=== PATIENT | male | born 1960 | race Caucasian/White ===

== ENCOUNTER → 2017-05-26 | Day surgery (SDC) | payer OTHER ==
--- NOTE | 2017-05-25 17:13 | Diagnostic Imaging Report ---
PROCEDURE: Frontal and lateral views of the chest. COMPARISON: None. INDICATIONS: PRE-OPERATIVE CHEST X-RAY FOR PROSTATE SURGERY FINDINGS: Lines/tubes: None. Lungs: The lungs are well inflated and clear. There is no evidence of pneumonia or pulmonary edema. Pleura: There is no pleural effusion or pneumothorax. Heart and mediastinum: The heart and the mediastinum are normal. Bones: No acute bony abnormality. IMPRESSION: 1. No acute cardiopulmonary abnormalities Eugene Summers M.D. Dictated by: Eugene Summers M.D. on 05/25/2017 at 17:13 Electronically approved by: Eugene Summers M.D. on 05/25/2017 at 17:13
[~2017-05-26] MED LIST: BELLADONNA/OPIUM 60 MG SUPP PR ONE; BUPIVACAINE 0.5%/EPI 30 ML SDV INJ ONE; CLINDAMYCIN PHOS 900MG/ D5W 50 50 ML IV ONE; DEXAMETHASONE SOD PHOS INJ 4 MG/ML VIAL ONE; FENOFIBRATE145 MG PO; FENTANYL CITRATE/PF 100MCG/2 ML INJ ONE; GENTAMICIN 80MG/NS 100 ML 200 ML IV ONE; IOPAMIDOL 610MG/1ML 300 MG/ML VIAL IV ONE; LIDOCAINE 1% W/EPINEPHRINE 20 ML VIAL ONE; LIDOCAINE HCL 2% LOCAL INJ 5 ML SDV VIAL INJ ONE; LISINOPRIL40 MG PO; METOPROLOL SUCC25 MG PO; MIDAZOLAM HCL 2 MG/2 ML VIAL ONE; ONDANSETRON HCL INJ 2 MG/ML VIAL ONE; PIPER-TAZ 3.375 GM 50 ML ONE; PROPOFOL IV EMULSION 10 MG/ML 20 ML VIAL ONE; SEVOFLURANE INHAL SOLN 250 ML PEN BTL ONE
--- OUTSIDE RECORDS SUMMARY | 2017-05-26 09:09 | XMS REPORT ---
Author Author [facility] Address Unknown Phone Unavailable Care Team Providers Care Blind Eyeletter Name Role Phone LAMONT MEDEIROS Unavailable Unavailable Problems This patient has no known problems. Allergies, Adverse Reactions, Alerts This patient has no known allergies or adverse reactions. Medications This patient has no known medications. Results Test Description Test Time Test Comments Text Results Atomic Results Result Comments CHEST 2 VIEWS [place] [address] Patient Name: SUSAN KNOX MR #: [id number] : 1960 Age/Sex: 56/M Req #: [id number] Adm Physician: Ordered by: LAMONT MEDEIROS MD Report #: [id number] Location: OR Room/Bed: Procedure: [id number] DX/ CHEST 2 VIEWS Exam Date: 05/25/17 Exam Time: 1603 REPORT STATUS: Signed PROCEDURE: Frontal and lateral views of the chest. COMPARISON: None. INDICATIONS: PRE-OPERATIVE CHEST X-RAY FOR PROSTATE SURGERY FINDINGS: Lines/tubes: None. Lungs: The lungs are well inflated and clear. There is no evidence of pneumonia or pulmonary edema. Pleura: There is no pleural effusion or pneumothorax. Heart and mediastinum: The heart and the mediastinum are normal. Bones: No acute bony abnormality. IMPRESSION: 1. No acute cardiopulmonary abnormalities Joan Lucio M.D. Dictated by : Joan Lucio M.D. on 05/25/2017 at 17:13 Electronically approved by: Joan Lucio M.D. on 05/25/2017 at 17:13 Dictated By : JOAN LUCIO MD 12 Transcribed By: ATINA on 05/25/171712 COPY TO: LAMONT MEDEIROS MD
--- NOTE | 2017-07-12 07:23 | Operative Report ---
DATE OF PROCEDURE: May 26, 2017 PREOPERATIVE DIAGNOSES: 1. Severely elevated prostate-specific antigen. 2. Abnormal digital rectal examination. 3. Benign prostatic hypertrophy. 4. Lesion of the right perineum. POSTOPERATIVE DIAGNOSES: 1. Severely elevated prostate-specific antigen. 2. Abnormal digital rectal examination. 3. Benign prostatic hypertrophy. 4. Lesion of the right perineum. OPERATIONS PERFORMED: 1. Transrectal sonography interpretation. 2. Interpretation of ultrasonographic guidance for needle biopsies of the prostate. 3. Transrectal needle biopsies of the prostate (separate procedure performed for the elevated prostate-specific antigen and the abnormal digital rectal examination). 4. Cystourethroscopy with bilateral ureteral catheterization and retrograde ureteropyelography (separate procedure performed for the obstructive benign prostatic hypertrophy). 5. Interpretation of retrograde ureteropyelography. 6. Supervision of fluoroscopy, no radiologist present. 7. Excision of lesion (separate procedure performed for the lesion). ANESTHESIA: General. COMPLICATIONS: None. CLINICAL SUMMARY: Satish Londono is a 56-year-old man who has an elevated PSA and nodular prostate that is also large. He also has a lesion in the right perineum that bothers him and he would like it excised. He is aware of the risks of bleeding, infection, injury to adjacent structures, need for additional procedures, and elected to proceed. OPERATIVE PROCEDURE IN DETAIL: Informed consent was verified. Satish Londono was properly identified, taken to the operating room and placed on the cystoscopy table in supine position. Anesthesia was uneventfully begun. The patient was then carefully and gently repositioned in dorsal lithotomy position with all pressure points well padded. Digital rectal examination was performed, it revealed an enlarged left lobe that was truly huge and it was extremely irregular, hard and firm and highly suspicious. Real-time ultrasonography was then performed transrectally. The left side of the prostate was much larger than the right side of the prostate. It contained rather significant heterogeneity and was highly suspicious. The capsule was distorted and the lesion seemed to be locally invasive. Seminal vesicles were relatively unremarkable. The prostate was estimated at 40 mL in size. guidance, needle biopsies of the prostate were taken, total of 12 biopsies were taken from 6 different areas. These were labeled right versus left and base versus mid versus apex. Following obtaining all these biopsies, the patient's genitalia were prepared and draped in usual sterile fashion. The 22.5-Irish cystoscope sheath with the visual obturator in place was atraumatically inserted in the patient's urethra. It was guided down the unremarkable distal urethra through the normal sphincteric region into the patient's prostate bed, which was significant for very early BPH. Panendoscopy of the urinary bladder revealed single ureteral orifice on the right and 2 ureteral orifices on the left. At least grade 1 trabeculations were noted. A ureteral catheter was utilized to cannulate all 3 ureters and retrograde ureteral pyelograms were performed. Interpretation of retrograde ureteropyelography: Contrast was instilled in retrograde fashion bilaterally. There were no tumors, no stones, and no diverticula. There was complete ureteral duplication on left hand side. Unobstructed drainage was observed bilaterally fluoroscopically. There was no evidence of any neoplastic process involving blockage of the upper tracts. The patient's bladder was then drained. The cystoscope was withdrawn. We then turned attention to the lesion in the right perineum. The lesion was circumscribed and excised. We mobilized the skin around it. We verified perfect hemostasis. We infiltrated with Marcaine with epinephrine for postoperative pain control. The incision was then approximated with 2-0 Vicryl suture in interrupted fashion for the subcutaneous tissues and the skin was approximated with 3-0 sutures in subcuticular fashion. Sterile dressing was applied, and the patient was uneventfully reversed from anesthesia and taken to recovery room in stable condition. There were no complications to the procedure. Patient tolerated the procedure well. Sponge, needle, and instrument counts were quoted as correct x2 at the end of the case. Estimated blood loss was minimal. Explicit postoperative instructions were given, and will eagerly await the final histopathology for further management. Job#: [id number] cc:MELVIN OCHOA DO
== END | disposition home or self-care (01) ==
LOC: OR 09:07
PROVIDERS: ATTEND Urology
DX: C61 Malignant neoplasm of prostate (principal); D17.39 Benign lipomatous neoplasm of skin and subcutaneous tissue of other sites; N40.1 Benign prostatic hyperplasia with lower urinary tract symptoms; N13.8 Other obstructive and reflux uropathy; N32.89 Other specified disorders of bladder; R35.1 Nocturia; Q62.5 Duplication of ureter; Z01.810 Encounter for preprocedural cardiovascular examination; Z01.818 Encounter for other preprocedural examination; H91.90 Unspecified hearing loss, unspecified ear; I10 Essential (primary) hypertension; E78.5 Hyperlipidemia, unspecified; T78.40XA Allergy, unspecified, initial encounter; X58.XXXA Exposure to other specified factors, initial encounter; F17.210 Nicotine dependence, cigarettes, uncomplicated; Z86.19 Personal history of other infectious and parasitic diseases; Z80.42 Family history of malignant neoplasm of prostate; Z80.51 Family history of malignant neoplasm of kidney
CPT/HCPCS: 11420; 12041; 52005; 55700; 71046; 74420; 76872; 76942; 88305; 93005; C1758; J1100; J1580; J2001; J2250; J2405; J2543; Q9967

== ENCOUNTER → 2017-06-25 | Outpatient (CLI) | payer OTHER ==
[~2017-06-25] MED LIST changes: -BELLADONNA/OPIUM 60 MG SUPP PR ONE; -BUPIVACAINE 0.5%/EPI 30 ML SDV INJ ONE; -CLINDAMYCIN PHOS 900MG/ D5W 50 50 ML IV ONE; -DEXAMETHASONE SOD PHOS INJ 4 MG/ML VIAL ONE; -FENTANYL CITRATE/PF 100MCG/2 ML INJ ONE; -GENTAMICIN 80MG/NS 100 ML 200 ML IV ONE; +IOPAMIDOL 370 MG/ML 200 ML INFUS..BTL INJ ONE; -IOPAMIDOL 610MG/1ML 300 MG/ML VIAL IV ONE; -LIDOCAINE 1% W/EPINEPHRINE 20 ML VIAL ONE; -LIDOCAINE HCL 2% LOCAL INJ 5 ML SDV VIAL INJ ONE; -MIDAZOLAM HCL 2 MG/2 ML VIAL ONE; -ONDANSETRON HCL INJ 2 MG/ML VIAL ONE; -PIPER-TAZ 3.375 GM 50 ML ONE; -PROPOFOL IV EMULSION 10 MG/ML 20 ML VIAL ONE; -SEVOFLURANE INHAL SOLN 250 ML PEN BTL ONE; +SODIUM CHLORIDE 0.9% 50ML 50 ML ONE
[2017-06-25 15:22] LABS: BLOOD UREA NITROGEN 14 mg/dL (7-26); BUN/CREATININE RATIO 12 (6-25); CREATININE, SERUM 1.21 mg/dL (0.72-1.25); EST GLOMERULAR FILTRATION RATE > 60 ML/MIN (60-)
--- NOTE | 2017-06-25 17:10 | Diagnostic Imaging Report ---
PROCEDURE: CT ABDOMEN AND PELVIS WITH CONTRAST TECHNIQUE: The abdomen and pelvis were scanned utilizing a multidetector helical scanner from the diaphragm to the lesser trochanter after the IV administration of 100 cc of Isovue 370 and the oral administration of water. Coronal and sagittal multiplanar reformations were obtained. COMPARISON: None. INDICATIONS: MALIGNANT NEOPLASM OF PROSTATE FINDINGS: LOWER THORAX: Minimal bilateral lower lobe dependent atelectasis. No pulmonary nodules or masses in the lung bases. HEPATOBILIARY: No focal hepatic lesions. No biliary ductal dilatation. Gallbladder is decompressed, but grossly unremarkable. SPLEEN: No splenomegaly. PANCREAS: No focal masses or ductal dilatation. Normal appearing pancreatic head, neck, and proximal body. The pancreatic tail is absent. ADRENALS: No adrenal nodules. KIDNEYS/URETERS: No hydronephrosis, stones, or solid mass lesions. PELVIC ORGANS/BLADDER: Bladder is unremarkable. No focal lesion or wall thickening. The prostate measures approximately 4.6 x 4.5 x 5.0 cm (estimated volume of 54 cc). There is asymmetry of the seminal vesicles, with the left seminal vesicle twice as large as the right (for example series 2, image 81) and with a denser appearance. PERITONEUM / RETROPERITONEUM: No free air or fluid. LYMPH NODES: No intra-abdominal, pelvic, or inguinal adenopathy. Slightly prominent left common iliac lymph node (series 2, image 48), which measures approximately 9-10 mm short axis. VESSELS: Atherosclerotic calcification of the infrarenal abdominal aorta and proximal iliac vessels. GI TRACT: No bowel dilation or evidence of obstruction. No pericolonic inflammatory changes. Appendix is well identified and normal in caliber. BONES AND SOFT TISSUES: No aggressive lytic lesion. 0.9 cm focal sclerotic lesion in the left sacrum (series 2, image 62 and coronal image 67). 2 mm focal sclerotic lesion in the L5 vertebral body (series 2, image 56 and sagittal image 67). Punctate focal sclerotic lesion in the right acetabulum (series 2 image 75). 3-4 mm focal sclerotic lesion in the left iliac bone (series 2, image 68). Ill-defined 4 mm and 9 mm focal sclerotic lesions in the right inferior pubic ramus (series 2 image 95). Soft tissues are grossly unremarkable. IMPRESSION: 1. Enlarged prostate likely due to known prostatic neoplasm. There is asymmetry of the seminal vesicles, with enlargement of the left one, which may represent invasion and/or obstruction. This may be further assessed with prostate MRI. 2. 9 mm left sacral, 2 mm, L5 vertebral body and for a 9 mm right inferior pubic ramus sclerotic lesions are suspicious for sclerotic metastases. Focal sclerotic lesions in the right acetabulum and left iliac bone probably represents bone islands, however, other metastases are also considered. 3. Slightly prominent left common iliac lymph node, which could be metastatic. No other adenopathy is identified. No solid organ metastatic disease. Eugene Summers M.D. Dictated by: Eugene Summers M.D. on 06/25/2017 at 17:10 Electronically approved by: Eugene Summers M.D. on 06/25/2017 at 17:10
== END ==
LOC: CT 14:41
PROVIDERS: ATTEND Urology
DX: C61 Malignant neoplasm of prostate (principal)
CPT/HCPCS: 36415; 74177; 82565; 84520; Q9967

== ENCOUNTER → 2017-07-12 | Outpatient (CLI) | payer OTHER ==
[~2017-07-12] MED LIST changes: -IOPAMIDOL 370 MG/ML 200 ML INFUS..BTL INJ ONE; -SODIUM CHLORIDE 0.9% 50ML 50 ML ONE
--- NOTE | 2017-07-12 19:30 | Diagnostic Imaging Report ---
Bone Scan, delayed phase INDICATION: 56 M with recently diagnosed prostate cancer; elevated PSA. COMPARISON: CT abdo/pelvis 06/25/2017 REPORT: Approximately 3 hours following intravenous administration of 27 mCi of Tc-99m MDP, delayed total body images in the anterior and posterior projections and selected spot images were obtained. Foci of markedly increased tracer are seen in the mid cervical spine; T4; T8; left clavicle at the sternoclavicular junction; manubrium; distal sternal body; left 6th, 8th and 10th ribs posteriorly; right 5th and 8th-11th ribs posteriorly; sacrum and right iliac wing. Additional small foci of mildly increased tracer are seen in the upper thoracic spine, L4/L5 on the right and at the lesser trochanter of the left femur. Otherwise, distribution of tracer activity is unremarkable throughout the skeletal system. No abnormal accumulation of tracer is seen in the soft tissues or urinary tract. IMPRESSION: 1. Scan evidence of metastatic bone disease in the cervical and thoracic spine, left clavicle, manubrium, sternum, multiple ribs posteriorly, sacrum, right ilium and likely lesser trochanter of the left femur. 2. Osteoblastic lesions in the right 8th-11th ribs posteriorly are in an adjacent pattern and may represent healing rib fractures. Can be followed on future imaging. 3. Osteoblastic process in L4/L5 on the right is likely due to degenerative change. Signed by: Dr. Carlota Melo M.D. on 07/12/2017 7:26 PM
== END ==
LOC: NM 12:43
PROVIDERS: ATTEND Urology
DX: C61 Malignant neoplasm of prostate (principal)
CPT/HCPCS: 78306; A9503

== ENCOUNTER 2017-10-08 16:10 | Inpatient (IN) | payer OTHER ==
[~2017-10-08] VITALS: Ht 190.5 cm; Wt 99.8 kg
[2017-10-08] MEDS ORDERED: VANCOMYCIN HCL 1 GM VIAL IV ONE (16:30)
[2017-10-08] MEDS ORDERED: MORPHINE SULFATE INJ 4 MG/ML INJ IV ONE (16:30)
[2017-10-08] MEDS ORDERED: SODIUM CHLORIDE 0.9% 1000ML 1,000 ML ONE (16:30)
[2017-10-08] MEDS ORDERED: ONDANSETRON HCL INJ 2 MG/ML VIAL IV ONE (16:30)
[2017-10-08] MEDS ORDERED: CEFTRIAXONE SOD 1 GM VIAL IV ONE (16:30)
[2017-10-08] MEDS ORDERED: ACETAMINOPHEN 325 MG TAB PO ONE (17:00)
[2017-10-08] MEDS ORDERED: PROMETHAZINE 12.5MG/ NACL 0.9% 12.5 MG/50 ML BAG IV PRN (18:30)
[2017-10-08] MEDS ORDERED: HYDROMORPHONE 1MG/1ML INJ IV PRN (18:30)
[2017-10-08] MEDS ORDERED: DIPHENHYDRAMINE HCL 25 MG CAP PO PRN (18:30)
[2017-10-08] MEDS ORDERED: SODIUM CHLORIDE 0.9% 1000ML 1,000 ML IV ONE (18:30)
[2017-10-08] MEDS ORDERED: CLONIDINE HCL 0.1 MG TAB PO PRN (18:30)
[2017-10-08] MEDS ORDERED: ONDANSETRON HCL INJ 2 MG/ML VIAL IV PRN (18:30)
[2017-10-08] MEDS ORDERED: HYDROCODONE/APAP 7.5MG-325MG 1 EA TAB PO PRN (18:30)
[2017-10-08] MEDS ORDERED: DIPHENHYDRAMINE HCL INJ 50 MG/ML VIAL IV PRN (18:30)
[2017-10-08] MEDS ORDERED: LACTULOSE SYRUP 20 GM/30 ML UDC PO PRN (18:30)
[2017-10-08] MEDS: VANCOMYCIN 1GM/NS 250 ML 250 ML IV SCH (19:36)
[2017-10-08] MEDS ORDERED: ONDANSETRON HCL4 MG (20:07)
[2017-10-08] MEDS ORDERED: CHANTIX1 MG (20:07)
[2017-10-08 20:28] VITALS: BP 149/70
[2017-10-08] MEDS ORDERED: ZOLPIDEM TARTRATE 10 MG TAB PO PRN (21:00)
[2017-10-08] MEDS: CLINDAMYCIN PHOS 900MG/ D5W 50 50 ML IV SCH (23:15)
[2017-10-09] VITALS (9 sets, daily range): BP systolic 126–168; BP diastolic 58–79
[2017-10-09 05:47] LABS: BASOPHILS # (AUTO) 0.1 (0.0-0.1); BASOPHILS % 1.6 % (0.0-1.0); EOSINOPHILS % 0.4 % (0.0-6.0); HEMATOCRIT 28.4 % (38.2-49.6); LYMPHOCYTES % 26.1 % (18.0-39.1); MEAN CORPUSCULAR HEMOGLOBIN 30.5 pg (28-32); MEAN CORPUSCULAR HGB CONC 35.2 g/dL (31-35); MEAN CORPUSCULAR VOLUME 86.6 fL (81-99); MONOCYTES # (AUTO) 2.2 (0.2-0.8); MONOCYTES % 28.1 % (4.4-11.3); NEUTROPHILS % 38.3 % (38.7-80.0); PLATELET COUNT 216 x10e3/uL (140-360); RED BLOOD COUNT 3.28 x10e6/uL (4.3-5.7); RED CELL DISTRIBUTION WIDTH 12.7 % (11.7-14.4)
[2017-10-09] MEDS: VANCOMYCIN 1GM/NS 250 ML 250 ML IV SCH ×2 (05:55→18:45)
[2017-10-09 06:03] LABS: ANION GAP 12.5 mmol/L (8-16); BLOOD UREA NITROGEN 16 mg/dL (7-26); BUN/CREATININE RATIO 13 (6-25); CALCIUM 8.7 mg/dL (8.4-10.2); CARBON DIOXIDE 24 mmol/L (22-29); CHLORIDE 105 mmol/L (98-107); CREATININE, SERUM 1.19 mg/dL (0.72-1.25); EST GLOMERULAR FILTRATION RATE > 60 ML/MIN (60-); GLUCOSE 117 mg/dL (74-118); POTASSIUM 3.5 mmol/L (3.5-5.1); SODIUM 138 mmol/L (136-145)
[2017-10-09 06:28] LABS: BAND NEUTROPHILS % (MANUAL) 4 %; LYMPHOCYTES % (MANUAL) 22 % (19-48); METAMYELOCYTES % (MANUAL) 1 % (0-0); MONOCYTES % (MANUAL) 20 % (3.4-9.0); MYELOCYTES % (MANUAL) 1 % (0-0); NEUTROPHILS % (MANUAL) 50 % (40-74); PLATELET ESTIMATE ADEQUATE; PLATELET MORPHOLOGY COMMENT NORMAL; RBC MORPHOLOGY COMMENT NORMAL
[2017-10-09] MEDS: CLINDAMYCIN PHOS 900MG/ D5W 50 50 ML IV SCH ×3 (07:20→22:01)
[2017-10-09] MEDS: FAMOTIDINE 20 MG TAB PO SCH ×2 (07:30→16:30)
[2017-10-09] MEDS ORDERED: CEFEPIME 1GM/NS 0.9% 50 ML 50 ML IV SCH (12:00)
[2017-10-09] MEDS: METOPROLOL SUCCINATE 25 MG TAB XL PO SCH (12:00)
[2017-10-09] MEDS: FENOFIBRATE 145 MG TAB PO SCH (12:00)
[2017-10-09] MEDS: LISINOPRIL 20 MG TAB PO SCH (12:00)
[2017-10-09] MEDS: CEFEPIME HCL 1 GM VIAL IV SCH ×2 (13:00→20:30)
[2017-10-09] MEDS ORDERED: POTASSIUM CHLORIDE 20 MEQ TAB CR PO ONE (16:00)
--- NOTE | 2017-10-09 16:53 | Diagnostic Imaging Report ---
Exam: Soft tissue neck CT with IV contrast History: Facial cellulitis Comparison studies: Outside maxillofacial CT 10/08 Technique: Axial, coronal and sagittal images from the skull base to the thoracic inlet. Coronal and sagittal images reconstructed from the axial data. Intravenous contrast: 100 cc of Isovue-370 Findings: Soft tissues: Right premandibular swelling with overlying skin thickening and stranding in the subcutaneous fat compatible with cellulitis. There is reactive thickening of the right platysmas muscle. No rim-enhancing fluid collection to indicate abscess. Upper aerodigestive tract: No mass or enhancing abnormalities. Mildly prominent lingual lymphoid tissue extends into the vallecula. Lymph nodes: Small nonnecrotic reactive right suprahyoid jugulodigastric lymph nodes. Vessels: Patent carotid and vertebral arteries. Calcified atherosclerosis at the cervical carotid bulbs and carotid bifurcations with mild stenosis on the right. No hemodynamically significant stenosis on the left. Glands (thyroid, parotid and submandibular): Normal in size and symmetric. No masses. Orbits: No abnormalities. The paranasal sinuses: Mild mucosal thickening along the left maxillary sinus alveolar recess. Temporal bones: Chronic inflammatory changes in the mastoids bilaterally. Included skull base and facial bones: Intact. Dentition: edentulous. Cervical spine: Minimal anterolisthesis of C4 on C5 and retrolisthesis of C5 on C6. Mildly degenerated disks with disc osteophyte complexes at C4-C5 which result in mild canal stenosis. Moderate moderate right greater than left foraminal stenosis at C4-C5 due to uncovertebral arthrosis and severe right facet arthrosis. Moderate left and mild/moderate right foraminal stenosis at C5-C6 due to uncovertebral arthrosis. IMPRESSION: 1. Right perimandibular facial cellulitis with reactive regional lymph nodes. No abscess. 2. No other acute abnormalities or changes from the previous head CT of 10/08/2017. Signed by: Dr. Santos Bravo M.D. on 10/09/2017 4:49 PM
[2017-10-09] MEDS ORDERED: SODIUM CHLORIDE 0.9% 50ML 50 ML ONE (18:32)
[2017-10-09] MEDS ORDERED: IOPAMIDOL 370 MG/ML 200 ML INFUS..BTL INJ ONE (18:33)
[2017-10-09] MEDS ORDERED: DIPHENHYDRAMINE HCL 30 GM TUBE TOP PRN (20:15)
[2017-10-09] MEDS: ACETAMINOPHEN 325 MG TAB PO PRN (20:30)
[2017-10-10 04:00] VITALS: BP 157/72
[2017-10-10] MEDS: CEFEPIME HCL 1 GM VIAL IV SCH ×3 (05:08→21:24)
[2017-10-10] MEDS: CLINDAMYCIN PHOS 900MG/ D5W 50 50 ML IV SCH ×3 (05:08→21:37)
[2017-10-10 05:58] LABS: BASOPHILS # (AUTO) 0.2 (0.0-0.1); BASOPHILS % 1.7 % (0.0-1.0); EOSINOPHILS # (AUTO) 0.1 (0.0-0.4); EOSINOPHILS % 0.6 % (0.0-6.0); HEMOGLOBIN 9.9 g/dL (14.0-18.0); LYMPHOCYTES # (AUTO) 2.6 (1.0-3.2); LYMPHOCYTES % 24.8 % (18.0-39.1); MEAN CORPUSCULAR HEMOGLOBIN 30.6 pg (28-32); MEAN CORPUSCULAR HGB CONC 35.4 g/dL (31-35); MEAN CORPUSCULAR VOLUME 86.4 fL (81-99); MONOCYTES # (AUTO) 1.7 (0.2-0.8); MONOCYTES % 16.6 % (4.4-11.3); NEUTROPHILS # (AUTO) 4.4 (2.1-6.9); PLATELET COUNT 220 x10e3/uL (140-360); RED BLOOD COUNT 3.24 x10e6/uL (4.3-5.7); RED CELL DISTRIBUTION WIDTH 12.8 % (11.7-14.4)
[2017-10-10] MEDS: VANCOMYCIN 1GM/NS 250 ML 250 ML IV SCH ×2 (06:05→17:26)
[2017-10-10 06:26] LABS: ANION GAP 10.4 mmol/L (8-16); BLOOD UREA NITROGEN 12 mg/dL (7-26); BUN/CREATININE RATIO 10 (6-25); CALCIUM 8.9 mg/dL (8.4-10.2); CARBON DIOXIDE 25 mmol/L (22-29); CHLORIDE 107 mmol/L (98-107); CREATININE, SERUM 1.15 mg/dL (0.72-1.25); EST GLOMERULAR FILTRATION RATE > 60 ML/MIN (60-); GLUCOSE 107 mg/dL (74-118); POTASSIUM 4.4 mmol/L (3.5-5.1); SODIUM 138 mmol/L (136-145)
[2017-10-10 06:51] LABS: THYROID STIMULATING HORMONE 4.075 uIU/mL (0.350-4.940)
[2017-10-10] MEDS: FAMOTIDINE 20 MG TAB PO SCH ×2 (07:30→17:26)
[2017-10-10 08:12] VITALS: BP 162/80
[2017-10-10] MEDS: FENOFIBRATE 145 MG TAB PO SCH (09:00)
[2017-10-10] MEDS: AMLODIPINE BESYLATE 10 MG TAB PO SCH (09:00)
[2017-10-10] MEDS: LISINOPRIL 20 MG TAB PO SCH (09:00)
[2017-10-10] MEDS: METOPROLOL SUCCINATE 25 MG TAB XL PO SCH (09:00)
[2017-10-10 09:34] LABS: BAND NEUTROPHILS % (MANUAL) 15 %; LYMPHOCYTES % (MANUAL) 22 % (19-48); METAMYELOCYTES % (MANUAL) 1 % (0-0); MONOCYTES % (MANUAL) 21 % (3.4-9.0); NEUTROPHILS % (MANUAL) 39 % (40-74)
[2017-10-10 09:35] LABS: PLATELET ESTIMATE ADEQUATE; PLATELET MORPHOLOGY COMMENT NORMAL; RBC MORPHOLOGY COMMENT NORMAL
--- NOTE | 2017-10-10 10:10 | History and Physical ---
PRIMARY CARE PROVIDER: Dr. Yomi Mcclellan CHIEF COMPLAINT: Cellulitis, right face. HISTORY OF PRESENT ILLNESS: Mr. Londono is a 57-year-old gentleman who presents with erythema and swelling of the right face extending from the maxillary ridge down into the jaw area. This has been going on for about 2 to 3 days. REVIEW OF SYSTEMS: He has had some subjective fever and chills. He denies weight loss. He denies chest pain or palpitations. He denies shortness breath, wheezing or cough. He denies abdominal pain, nausea, vomiting or melena. He denies dysuria or flank pain. He denies rash or pruritus except for the cellulitis of the right face. He denies joint pain or swelling. He denies bleeding or bruising. He denies headache, vertigo or loss of consciousness. He denies depression, agitation, homicidal or suicidal ideation. PAST MEDICAL HISTORY: Significant for longstanding hypertension for which he takes metoprolol 25 mg daily XL and lisinopril 40 mg daily. He also takes fenofibrate 145 for hyperlipidemia. The patient also has stage-IV prostate cancer that was diagnosed earlier this year. His PSA at that time was over 200. He was started on chemo by MD William. His last chemo was September 21. His last PSA was 0, seems to be responding to chemo. His next treatment is October 14. Hopefully, he will be home by then. SURGICAL HISTORY: He denies any significant surgical history. ALLERGIES: HE HAS NO KNOWN DRUG ALLERGIES. HABITS: He is a nonsmoker. FAMILY HISTORY: Remarkable for hypertension. SOCIAL HISTORY: The patient is . Occitan is his primary language. He does not smoke, drink or use illegal drugs. He is generally independently functioning. PHYSICAL EXAMINATION PSYCHIATRIC: He is alert and oriented times 3 with normal mood and affect. CONSTITUTIONAL: He has a normal body habitus. He is in no acute distress. VITAL SIGNS: Blood pressure 168/74. Pulse 67 and regular. Respiratory rate 19. O2 sat 100% on room air. Temperature 96.8. HEENT: Head is atraumatic. He has marked erythema in the lower right cheek and chin area with marked induration, approximately 3 to 4 cm in diameter of induration underneath the chin on the right side. His oropharynx is clear. NECK: Supple with no mass or thyromegaly. LYMPHATIC SYSTEM: He has no palpable cervical, axillary or inguinal adenopathy. CARDIOVASCULAR: His heart has a regular rate and rhythm without murmur or extra heart sound. He has no carotid bruit. There is no peripheral edema. He has palpable dorsal pedal pulses. RESPIRATORY: Lungs are clear to auscultation and percussion with normal respiratory effort. GASTROINTESTINAL: Abdomen is soft without organomegaly, masses or tenderness. He has normal bowel sounds present. CUTANEOUS: His skin is warm and dry to touch. He has erythema, induration and swelling of the right face. Otherwise, he has no rash or skin breakdown. MUSCULOSKELETAL: Joints are in normal alignment without erythema or swelling. He has no calf tenderness. NEUROLOGIC: Exam is nonfocal with intact cranial nerves and no motor or sensory deficits. DIAGNOSTIC STUDIES: CBC shows a white count of 7.69 with a normal differential. Hemoglobin 10.0, hematocrit 28.4, platelet count 214,000. His neutrophil count is 38.3, which is slightly depressed, lymphocytes 22, monocytes 20, could be the result of recovering bone marrow due to the chemo he had 2 weeks ago. His chemistry shows normal electrolytes. CO2 is 24. Creatinine 1.19 and BUN 16. Glucose 117. IMPRESSION AND PLAN 1. Cellulitis/abscess, right face and chin. The patient has been started on IV vancomycin and cefepime. There is a CT scan of the maxillofacial area which is pending. ENT has been consulted for evaluation as well. 2. Hypertension. Appears fairly well controlled at home. Will continue his home medications of metoprolol and lisinopril. 3. Hypokalemia. Potassium 3.5. Will replete with p.o. potassium. 4. Normocytic anemia, most likely due to the recent chemotherapy. Will observe H and H, recheck labs in the morning. 5. For prophylaxis, the patient will be on SCDs for DVT prophylaxis and Pepcid for GI prophylaxis. 6. As far as his prostate cancer goes, will be monitoring that for now. The patient is not due for more chemotherapy until 10/14/2017. Stage IV prostate cancer, which is current, present on admission. Job#: [id number]
[2017-10-10 13:25] VITALS: BP 148/80
[2017-10-10 16:41] VITALS: BP 145/85
[2017-10-10 20:15] VITALS: BP 153/82
[2017-10-10 21:00] VITALS: BP 153/82
[2017-10-11] VITALS (9 sets, daily range): BP systolic 129–152; BP diastolic 61–78
[2017-10-11 03:11] LABS: BASOPHILS # (AUTO) 0.2 (0.0-0.1); BASOPHILS % 1.9 % (0.0-1.0); EOSINOPHILS # (AUTO) 3.9 (0.0-0.4); EOSINOPHILS % 32.5 % (0.0-6.0); HEMATOCRIT 30.3 % (38.2-49.6); HEMOGLOBIN 10.8 g/dL (14.0-18.0); LYMPHOCYTES # (AUTO) 2.6 (1.0-3.2); LYMPHOCYTES % 21.4 % (18.0-39.1); MEAN CORPUSCULAR HEMOGLOBIN 30.2 pg (28-32); MEAN CORPUSCULAR HGB CONC 35.6 g/dL (31-35); MEAN CORPUSCULAR VOLUME 84.6 fL (81-99); MONOCYTES # (AUTO) 1.4 (0.2-0.8); MONOCYTES % 11.5 % (4.4-11.3); NEUTROPHILS # (AUTO) 1.2 (2.1-6.9); NEUTROPHILS % 10.3 % (38.7-80.0); PLATELET COUNT 276 x10e3/uL (140-360); RED BLOOD COUNT 3.58 x10e6/uL (4.3-5.7); RED CELL DISTRIBUTION WIDTH 12.9 % (11.7-14.4)
[2017-10-11 03:32] LABS: % IRON SATURATION 38 % (15-50); BLOOD UREA NITROGEN 10 mg/dL (7-26); BUN/CREATININE RATIO 9 (6-25); CALCIUM 9.4 mg/dL (8.4-10.2); CARBON DIOXIDE 25 mmol/L (22-29); CREATININE, SERUM 1.17 mg/dL (0.72-1.25); EST GLOMERULAR FILTRATION RATE > 60 ML/MIN (60-); GLUCOSE 101 mg/dL (74-118); IRON 98 ug/dL (65-175); TOTAL IRON BINDING CAPACITY 260 ug/dL (261-478); TRANSFERRIN 186 mg/dL (174-364)
[2017-10-11 03:43] LABS: ANION GAP 13.1 mmol/L (8-16); CHLORIDE 104 mmol/L (98-107); MAGNESIUM 2.3 MG/DL (1.3-2.1); POTASSIUM 4.1 mmol/L (3.5-5.1); SODIUM 138 mmol/L (136-145)
[2017-10-11 03:54] LABS: FERRITIN 701.38 ng/mL (21.81-274.66)
[2017-10-11 04:04] LABS: FOLATE 10.6 ng/mL (7.0-15.4)
[2017-10-11] MEDS: CEFEPIME HCL 1 GM VIAL IV SCH ×3 (05:14→20:52)
[2017-10-11] MEDS: CLINDAMYCIN PHOS 900MG/ D5W 50 50 ML IV SCH ×3 (05:29→21:59)
[2017-10-11] MEDS: VANCOMYCIN 1GM/NS 250 ML 250 ML IV SCH ×2 (06:17→18:43)
--- NOTE | 2017-10-11 08:31 | Consultation ---
DATE OF CONSULTATION: October 11, 2017 HOSPITAL CONSULTATION HISTORY OF PRESENT ILLNESS: I was kindly asked to see this pleasant 57-year-old man for evaluation of facial cellulitis. The patient reports that approximately 2 days prior to his admission he had a "pimple" on his right lower chin, which he picked. The following morning he woke and had a painful red, swollen area in the previous region of the pimple. It continued to progress and had swelling of the entire right face and into his neck. Since admission, the patient reports the swelling has reduced significantly and the pain has also reduced significantly. His history of present illness is pertinent for stage IV prostate cancer, on chemotherapy. Admission laboratory evaluation is pertinent for normal white count on examination. There is a 3 cm x 4 cm area of firmness overlying the right mandible with extension into the submandibular region. There is no fluctuance on palpation. The distribution is more consistent with skin lesion than suppurative adenitis. Intraoral examination shows there is no teeth and no oral cavity source of the infection is identified. ASSESSMENT: Facial cellulitis without abscess of skin origin. PLAN: Continuation of current therapy with consideration of incision and drainage based on clinical course. Job#: [id number] RAMIN
[2017-10-11] MEDS: LISINOPRIL 20 MG TAB PO SCH (08:33)
[2017-10-11] MEDS: FENOFIBRATE 145 MG TAB PO SCH (08:33)
[2017-10-11] MEDS: METOPROLOL SUCCINATE 25 MG TAB XL PO SCH (08:33)
[2017-10-11] MEDS: FAMOTIDINE 20 MG TAB PO SCH ×2 (08:33→17:00)
[2017-10-11] MEDS: AMLODIPINE BESYLATE 10 MG TAB PO SCH (08:33)
[2017-10-12] VITALS (8 sets, daily range): BP systolic 121–147; BP diastolic 59–77
[2017-10-12 04:03] LABS: BASOPHILS # (AUTO) 0.3 (0.0-0.1); EOSINOPHILS # (AUTO) 0.2 (0.0-0.4); EOSINOPHILS % 1.3 % (0.0-6.0); HEMATOCRIT 29.7 % (38.2-49.6); HEMOGLOBIN 10.4 g/dL (14.0-18.0); LYMPHOCYTES # (AUTO) 2.5 (1.0-3.2); LYMPHOCYTES % 17.4 % (18.0-39.1); MEAN CORPUSCULAR HEMOGLOBIN 30.1 pg (28-32); MEAN CORPUSCULAR VOLUME 85.8 fL (81-99); MONOCYTES # (AUTO) 1.4 (0.2-0.8); MONOCYTES % 9.5 % (4.4-11.3); NEUTROPHILS # (AUTO) 7.8 (2.1-6.9); NEUTROPHILS % 53.4 % (38.7-80.0); PLATELET COUNT 288 x10e3/uL (140-360); RED BLOOD COUNT 3.46 x10e6/uL (4.3-5.7)
[2017-10-12 04:34] LABS: ANION GAP 14.2 mmol/L (8-16); CALCIUM 9.7 mg/dL (8.4-10.2); CREATININE, SERUM 1.46 mg/dL (0.72-1.25); POTASSIUM 4.2 mmol/L (3.5-5.1)
[2017-10-12] MEDS: CEFEPIME HCL 1 GM VIAL IV SCH ×3 (05:25→21:35)
[2017-10-12] MEDS: CLINDAMYCIN PHOS 900MG/ D5W 50 50 ML IV SCH (05:49)
[2017-10-12] MEDS: VANCOMYCIN 1GM/NS 250 ML 250 ML IV SCH ×2 (06:45→18:35)
[2017-10-12 06:59] LABS: BAND NEUTROPHILS % (MANUAL) 14 %; EOSINOPHILS % (MANUAL) 1 % (0-7); LYMPHOCYTES % (MANUAL) 20 % (19-48); MONOCYTES % (MANUAL) 10 % (3.4-9.0); MYELOCYTES % (MANUAL) 3 % (0-0); NEUTROPHILS % (MANUAL) 50 % (40-74)
[2017-10-12 07:00] LABS: ANISOCYTOSIS SLIGHT; HYPOCHROMASIA SLIGHT; PLATELET ESTIMATE ADEQUATE; PLATELET MORPHOLOGY COMMENT NORMAL; RBC MORPHOLOGY COMMENT NORMAL
[2017-10-12 07:01] LABS: POIKILOCYTOSIS SLIGHT; SMUDGE CELLS FEW
[2017-10-12] MEDS ORDERED: DEXTROSE 5%/0.45% SOD CHL 1,000 ML IV ONE (08:45)
[2017-10-12] MEDS: FAMOTIDINE 20 MG TAB PO SCH ×2 (08:50→17:30)
[2017-10-12] MEDS: AMLODIPINE BESYLATE 10 MG TAB PO SCH (08:50)
[2017-10-12] MEDS: LISINOPRIL 20 MG TAB PO SCH (08:50)
[2017-10-12] MEDS: METOPROLOL SUCCINATE 25 MG TAB XL PO SCH (08:50)
[2017-10-12] MEDS: FENOFIBRATE 145 MG TAB PO SCH (08:50)
[2017-10-12] MEDS: ACYCLOVIR 200 MG/5 ML SUSP GT SCH ×2 (14:00→22:37)
[2017-10-13 03:15] LABS: BASOPHILS # (AUTO) 0.2 (0.0-0.1); BASOPHILS % 1.3 % (0.0-1.0); EOSINOPHILS # (AUTO) 0.4 (0.0-0.4); EOSINOPHILS % 2.5 % (0.0-6.0); HEMATOCRIT 28.4 % (38.2-49.6); HEMOGLOBIN 10.1 g/dL (14.0-18.0); LYMPHOCYTES # (AUTO) 2.6 (1.0-3.2); LYMPHOCYTES % 18.4 % (18.0-39.1); MEAN CORPUSCULAR HEMOGLOBIN 30.5 pg (28-32); MEAN CORPUSCULAR HGB CONC 35.6 g/dL (31-35); MEAN CORPUSCULAR VOLUME 85.8 fL (81-99); MONOCYTES # (AUTO) 1.2 (0.2-0.8); MONOCYTES % 8.5 % (4.4-11.3); NEUTROPHILS % 55.7 % (38.7-80.0); PLATELET COUNT 271 x10e3/uL (140-360); RED BLOOD COUNT 3.31 x10e6/uL (4.3-5.7)
[2017-10-13 03:26] LABS: CALCIUM 9.5 mg/dL (8.4-10.2); CREATININE, SERUM 1.28 mg/dL (0.72-1.25); MAGNESIUM 1.9 MG/DL (1.3-2.1)
[2017-10-13 03:37] LABS: BAND NEUTROPHILS % (MANUAL) 1 %; EOSINOPHILS % (MANUAL) 1 % (0-7); LYMPHOCYTES % (MANUAL) 21 % (19-48); METAMYELOCYTES % (MANUAL) 2 % (0-0); MONOCYTES % (MANUAL) 4 % (3.4-9.0); MYELOCYTES % (MANUAL) 1 % (0-0); NEUTROPHILS % (MANUAL) 70 % (40-74); PLATELET ESTIMATE ADEQUATE; PLATELET MORPHOLOGY COMMENT NORMAL; RBC MORPHOLOGY COMMENT NORMAL
[2017-10-13] MEDS: CEFEPIME HCL 1 GM VIAL IV SCH (05:19)
[2017-10-13] MEDS: VANCOMYCIN 1GM/NS 250 ML 250 ML IV SCH ×2 (06:04→18:12)
[2017-10-13] MEDS: ACYCLOVIR 200 MG/5 ML SUSP GT SCH ×3 (06:06→21:49)
[2017-10-13 06:16] VITALS: BP 103/58
[2017-10-13 08:00] VITALS: BP 129/77
[2017-10-13] MEDS ORDERED: DEXTROSE 5%/0.45% SOD CHL 1,000 ML IV ONE ×2 (08:15→12:00)
[2017-10-13] MEDS: LISINOPRIL 20 MG TAB PO SCH (08:30)
[2017-10-13] MEDS: AMLODIPINE BESYLATE 10 MG TAB PO SCH (08:30)
[2017-10-13] MEDS: FENOFIBRATE 145 MG TAB PO SCH (08:30)
[2017-10-13] MEDS: METOPROLOL SUCCINATE 25 MG TAB XL PO SCH (08:30)
[2017-10-13] MEDS: FAMOTIDINE 20 MG TAB PO SCH ×2 (08:30→16:45)
[2017-10-13 08:55] VITALS: BP 129/77
[2017-10-13 12:00] VITALS: BP 130/78
[2017-10-13 16:00] VITALS: BP 111/51
[2017-10-13 20:00] VITALS: BP 140/75
[2017-10-14] VITALS (8 sets, daily range): BP systolic 115–159; BP diastolic 56–102
[2017-10-14 04:08] LABS: BASOPHILS # (AUTO) 0.1 (0.0-0.1); BASOPHILS % 0.7 % (0.0-1.0); EOSINOPHILS # (AUTO) 0.6 (0.0-0.4); EOSINOPHILS % 4.6 % (0.0-6.0); HEMATOCRIT 29.9 % (38.2-49.6); HEMOGLOBIN 10.6 g/dL (14.0-18.0); LYMPHOCYTES # (AUTO) 2.5 (1.0-3.2); LYMPHOCYTES % 18.8 % (18.0-39.1); MEAN CORPUSCULAR HEMOGLOBIN 30.8 pg (28-32); MEAN CORPUSCULAR HGB CONC 35.5 g/dL (31-35); MEAN CORPUSCULAR VOLUME 86.9 fL (81-99); MONOCYTES # (AUTO) 1.1 (0.2-0.8); MONOCYTES % 7.9 % (4.4-11.3); NEUTROPHILS # (AUTO) 6.9 (2.1-6.9); NEUTROPHILS % 51.8 % (38.7-80.0); PLATELET COUNT 234 x10e3/uL (140-360); RED BLOOD COUNT 3.44 x10e6/uL (4.3-5.7)
[2017-10-14 04:26] LABS: ANION GAP 14.8 mmol/L (8-16); BLOOD UREA NITROGEN 15 mg/dL (7-26); BUN/CREATININE RATIO 13 (6-25); CALCIUM 9.5 mg/dL (8.4-10.2); CARBON DIOXIDE 23 mmol/L (22-29); CHLORIDE 105 mmol/L (98-107); CREATININE, SERUM 1.16 mg/dL (0.72-1.25); EST GLOMERULAR FILTRATION RATE > 60 ML/MIN (60-); GLUCOSE 113 mg/dL (74-118); MAGNESIUM 2.1 MG/DL (1.3-2.1); POTASSIUM 3.8 mmol/L (3.5-5.1); SODIUM 139 mmol/L (136-145)
[2017-10-14 04:44] LABS: BAND NEUTROPHILS % (MANUAL) 6 %; EOSINOPHILS % (MANUAL) 1 % (0-7); LYMPHOCYTES % (MANUAL) 21 % (19-48); METAMYELOCYTES % (MANUAL) 6 % (0-0); MONOCYTES % (MANUAL) 2 % (3.4-9.0); MYELOCYTES % (MANUAL) 7 % (0-0); NEUTROPHILS % (MANUAL) 56 % (40-74); PLATELET ESTIMATE ADEQUATE; PLATELET MORPHOLOGY COMMENT NORMAL; RBC MORPHOLOGY COMMENT NORMAL
[2017-10-14] MEDS: VANCOMYCIN 1GM/NS 250 ML 250 ML IV SCH ×2 (06:25→18:27)
[2017-10-14] MEDS: ACYCLOVIR 200 MG/5 ML SUSP GT SCH ×3 (06:25→20:38)
[2017-10-14] MEDS: METOPROLOL SUCCINATE 25 MG TAB XL PO SCH (08:50)
[2017-10-14] MEDS: FAMOTIDINE 20 MG TAB PO SCH ×2 (08:50→17:30)
[2017-10-14] MEDS: LISINOPRIL 20 MG TAB PO SCH (08:50)
[2017-10-14] MEDS: AMLODIPINE BESYLATE 10 MG TAB PO SCH (08:50)
[2017-10-14] MEDS: FENOFIBRATE 145 MG TAB PO SCH (08:50)
--- NOTE | 2017-10-14 21:57 | Diagnostic Imaging Report ---
EXAM: CHEST XRAY LINE PLACEMENT, AP 1 view INDICATION: Cellulitis and abscess COMPARISON: None FINDINGS: LINES/TUBES: Distal aspect of a right approach PICC terminates in the expected location of the distal superior vena cava. LUNGS: No consolidations or edema. PLEURA: No effusions or pneumothorax. HEART AND MEDIASTINUM: Normal size and contour. BONES AND SOFT TISSUES: No acute findings. IMPRESSION: Distal aspect of a right approach PICC terminates in the expected location of the distal superior vena cava. Signed by: Dr. Erin Maurer M.D. on 10/14/2017 9:54 PM
[2017-10-15] VITALS (8 sets, daily range): BP systolic 112–179; BP diastolic 53–84
[2017-10-15 03:46] LABS: BASOPHILS # (AUTO) 0.2 (0.0-0.1); BASOPHILS % 1.5 % (0.0-1.0); EOSINOPHILS # (AUTO) 0.9 (0.0-0.4); EOSINOPHILS % 6.6 % (0.0-6.0); HEMATOCRIT 29.3 % (38.2-49.6); HEMOGLOBIN 10.6 g/dL (14.0-18.0); LYMPHOCYTES # (AUTO) 2.7 (1.0-3.2); LYMPHOCYTES % 20.2 % (18.0-39.1); MEAN CORPUSCULAR HEMOGLOBIN 31.3 pg (28-32); MEAN CORPUSCULAR HGB CONC 36.2 g/dL (31-35); MEAN CORPUSCULAR VOLUME 86.4 fL (81-99); MONOCYTES # (AUTO) 1.1 (0.2-0.8); MONOCYTES % 8.2 % (4.4-11.3); NEUTROPHILS # (AUTO) 6.4 (2.1-6.9); NEUTROPHILS % 47.3 % (38.7-80.0); PLATELET COUNT 307 x10e3/uL (140-360); RED BLOOD COUNT 3.39 x10e6/uL (4.3-5.7); RED CELL DISTRIBUTION WIDTH 12.9 % (11.7-14.4)
[2017-10-15 04:01] LABS: BLOOD UREA NITROGEN 17 mg/dL (7-26); BUN/CREATININE RATIO 14 (6-25); CALCIUM 9.8 mg/dL (8.4-10.2); CARBON DIOXIDE 27 mmol/L (22-29); CHLORIDE 101 mmol/L (98-107); CREATININE, SERUM 1.21 mg/dL (0.72-1.25); EST GLOMERULAR FILTRATION RATE > 60 ML/MIN (60-); GLUCOSE 97 mg/dL (74-118); MAGNESIUM 2.2 MG/DL (1.3-2.1); SODIUM 138 mmol/L (136-145)
[2017-10-15] MEDS: VANCOMYCIN 1GM/NS 250 ML 250 ML IV SCH (06:22)
[2017-10-15] MEDS: ACYCLOVIR 200 MG/5 ML SUSP GT SCH ×3 (06:22→22:15)
[2017-10-15] MEDS: FAMOTIDINE 20 MG TAB PO SCH ×2 (07:30→16:30)
[2017-10-15] MEDS ORDERED: CATAPRES0.1 MG PO (08:40)
[2017-10-15] MEDS ORDERED: NIFEDIPINE ER30 MG PO (08:40)
[2017-10-15] MEDS ORDERED: TYLENOL WITH C1 EACH PO (08:40)
[2017-10-15] MEDS: METOPROLOL SUCCINATE 25 MG TAB XL PO SCH (08:47)
[2017-10-15] MEDS: LISINOPRIL 20 MG TAB PO SCH (08:47)
[2017-10-15] MEDS: FENOFIBRATE 145 MG TAB PO SCH (09:04)
[2017-10-15] MEDS: NIFEDIPINE CR 30 MG TAB PO SCH (09:04)
[2017-10-15] MEDS: ACETAMINOPHEN 325 MG TAB PO PRN (22:22)
[2017-10-16] VITALS (8 sets, daily range): BP systolic 101–164; BP diastolic 55–65
[2017-10-16 03:35] LABS: BASOPHILS # (AUTO) 0.2 (0.0-0.1); BASOPHILS % 1.1 % (0.0-1.0); EOSINOPHILS # (AUTO) 1.1 (0.0-0.4); EOSINOPHILS % 8.4 % (0.0-6.0); HEMATOCRIT 29.3 % (38.2-49.6); HEMOGLOBIN 10.5 g/dL (14.0-18.0); LYMPHOCYTES # (AUTO) 2.8 (1.0-3.2); MEAN CORPUSCULAR HEMOGLOBIN 30.7 pg (28-32); MEAN CORPUSCULAR HGB CONC 35.8 g/dL (31-35); MEAN CORPUSCULAR VOLUME 85.7 fL (81-99); MONOCYTES # (AUTO) 1.2 (0.2-0.8); MONOCYTES % 8.9 % (4.4-11.3); NEUTROPHILS # (AUTO) 6.2 (2.1-6.9); NEUTROPHILS % 46.8 % (38.7-80.0); PLATELET COUNT 285 x10e3/uL (140-360); RED BLOOD COUNT 3.42 x10e6/uL (4.3-5.7); RED CELL DISTRIBUTION WIDTH 12.9 % (11.7-14.4)
[2017-10-16 03:42] LABS: ANION GAP 13.1 mmol/L (8-16); CALCIUM 9.7 mg/dL (8.4-10.2); CREATININE, SERUM 1.27 mg/dL (0.72-1.25); POTASSIUM 4.1 mmol/L (3.5-5.1)
[2017-10-16] MEDS: ACYCLOVIR 200 MG/5 ML SUSP GT SCH ×3 (06:37→21:57)
[2017-10-16] MEDS: FAMOTIDINE 20 MG TAB PO SCH ×2 (07:39→16:52)
[2017-10-16] MEDS ORDERED: SODIUM CHLORIDE 0.9% 1000ML 1,000 ML IV ONE (08:30)
[2017-10-16] MEDS: NIFEDIPINE CR 30 MG TAB PO SCH (09:00)
[2017-10-16] MEDS: LISINOPRIL 20 MG TAB PO SCH (09:00)
[2017-10-16] MEDS: METOPROLOL SUCCINATE 25 MG TAB XL PO SCH (09:00)
[2017-10-16] MEDS: FENOFIBRATE 145 MG TAB PO SCH (09:22)
[2017-10-16] MEDS: VANCOMYCIN 1GM/NS 250 ML 250 ML IV SCH ×2 (09:22→20:30)
[2017-10-17 00:09] VITALS: BP 151/72
[2017-10-17 04:30] LABS: BASOPHILS # (AUTO) 0.1 (0.0-0.1); BASOPHILS % 1.3 % (0.0-1.0); EOSINOPHILS # (AUTO) 1.2 (0.0-0.4); EOSINOPHILS % 11.5 % (0.0-6.0); HEMATOCRIT 30.4 % (38.2-49.6); HEMOGLOBIN 10.5 g/dL (14.0-18.0); LYMPHOCYTES # (AUTO) 2.1 (1.0-3.2); LYMPHOCYTES % 20.9 % (18.0-39.1); MEAN CORPUSCULAR HEMOGLOBIN 30.1 pg (28-32); MEAN CORPUSCULAR HGB CONC 34.5 g/dL (31-35); MEAN CORPUSCULAR VOLUME 87.1 fL (81-99); MONOCYTES # (AUTO) 0.9 (0.2-0.8); MONOCYTES % 9.3 % (4.4-11.3); NEUTROPHILS # (AUTO) 4.8 (2.1-6.9); NEUTROPHILS % 46.9 % (38.7-80.0); PLATELET COUNT 248 x10e3/uL (140-360); RED BLOOD COUNT 3.49 x10e6/uL (4.3-5.7); RED CELL DISTRIBUTION WIDTH 13.2 % (11.7-14.4)
[2017-10-17 04:48] LABS: ANION GAP 13.2 mmol/L (8-16); CALCIUM 9.6 mg/dL (8.4-10.2); CREATININE, SERUM 1.26 mg/dL (0.72-1.25); MAGNESIUM 1.9 MG/DL (1.3-2.1); POTASSIUM 4.2 mmol/L (3.5-5.1)
[2017-10-17] MEDS: ACYCLOVIR 200 MG/5 ML SUSP GT SCH ×3 (06:00→21:28)
[2017-10-17] MEDS: FAMOTIDINE 20 MG TAB PO SCH ×2 (07:50→16:50)
[2017-10-17 07:56] VITALS: BP 128/74
[2017-10-17] MEDS ORDERED: DEXTROSE 5%/0.9% SOD CHL 1,000 ML IV SCH (08:30)
[2017-10-17 08:46] LABS: BAND NEUTROPHILS % (MANUAL) 5 %; EOSINOPHILS % (MANUAL) 12 % (0-7); LYMPHOCYTES % (MANUAL) 22 % (19-48); MONOCYTES % (MANUAL) 10 % (3.4-9.0); NEUTROPHILS % (MANUAL) 51 % (40-74)
[2017-10-17 08:47] LABS: PLATELET ESTIMATE ADEQUATE; PLATELET MORPHOLOGY COMMENT NORMAL; RBC MORPHOLOGY COMMENT NORMAL
[2017-10-17] MEDS: VANCOMYCIN 1GM/NS 250 ML 250 ML IV SCH ×2 (08:51→20:30)
[2017-10-17] MEDS: METOPROLOL SUCCINATE 25 MG TAB XL PO SCH (08:52)
[2017-10-17] MEDS: LISINOPRIL 20 MG TAB PO SCH (08:52)
[2017-10-17] MEDS: NIFEDIPINE CR 30 MG TAB PO SCH (08:52)
[2017-10-17] MEDS: FENOFIBRATE 145 MG TAB PO SCH (08:52)
[2017-10-17 12:00] VITALS: BP 158/78
[2017-10-17 16:04] VITALS: BP 131/69
[2017-10-17 17:28] VITALS: BP 131/69
[2017-10-17 20:00] VITALS: BP 128/67
[2017-10-18 00:45] VITALS: BP 98/56
[2017-10-18 04:44] LABS: BASOPHILS # (AUTO) 0.2 (0.0-0.1); BASOPHILS % 1.4 % (0.0-1.0); EOSINOPHILS # (AUTO) 1.7 (0.0-0.4); EOSINOPHILS % 16.6 % (0.0-6.0); HEMATOCRIT 29.5 % (38.2-49.6); HEMOGLOBIN 10.3 g/dL (14.0-18.0); LYMPHOCYTES # (AUTO) 2.2 (1.0-3.2); LYMPHOCYTES % 20.9 % (18.0-39.1); MEAN CORPUSCULAR HEMOGLOBIN 30.2 pg (28-32); MEAN CORPUSCULAR HGB CONC 34.9 g/dL (31-35); MEAN CORPUSCULAR VOLUME 86.5 fL (81-99); MONOCYTES % 9.5 % (4.4-11.3); NEUTROPHILS # (AUTO) 4.6 (2.1-6.9); NEUTROPHILS % 44.2 % (38.7-80.0); PLATELET COUNT 226 x10e3/uL (140-360); RED BLOOD COUNT 3.41 x10e6/uL (4.3-5.7); RED CELL DISTRIBUTION WIDTH 13.3 % (11.7-14.4)
[2017-10-18 04:58] LABS: ANION GAP 13.4 mmol/L (8-16); BLOOD UREA NITROGEN 15 mg/dL (7-26); BUN/CREATININE RATIO 13 (6-25); CALCIUM 9.5 mg/dL (8.4-10.2); CARBON DIOXIDE 26 mmol/L (22-29); CHLORIDE 106 mmol/L (98-107); CREATININE, SERUM 1.14 mg/dL (0.72-1.25); EST GLOMERULAR FILTRATION RATE > 60 ML/MIN (60-); GLUCOSE 94 mg/dL (74-118); MAGNESIUM 1.9 MG/DL (1.3-2.1); POTASSIUM 4.4 mmol/L (3.5-5.1); SODIUM 141 mmol/L (136-145)
[2017-10-18] MEDS: ACYCLOVIR 200 MG/5 ML SUSP GT SCH (05:36)
[2017-10-18 06:01] LABS: EOSINOPHILS % (MANUAL) 7 % (0-7); LYMPHOCYTES % (MANUAL) 7 % (19-48); MONOCYTES % (MANUAL) 13 % (3.4-9.0); NEUTROPHILS % (MANUAL) 73 % (40-74); PLATELET ESTIMATE ADEQUATE; PLATELET MORPHOLOGY COMMENT NORMAL; RBC MORPHOLOGY COMMENT NORMAL
[2017-10-18 08:00] VITALS: BP 129/63
[2017-10-18] MEDS: METOPROLOL SUCCINATE 25 MG TAB XL PO SCH (08:30)
[2017-10-18] MEDS: VANCOMYCIN 1GM/NS 250 ML 250 ML IV SCH (08:30)
[2017-10-18] MEDS: LISINOPRIL 20 MG TAB PO SCH (08:30)
[2017-10-18] MEDS: FAMOTIDINE 20 MG TAB PO SCH (08:30)
[2017-10-18] MEDS: FENOFIBRATE 145 MG TAB PO SCH (08:30)
[2017-10-18] MEDS: NIFEDIPINE CR 30 MG TAB PO SCH (08:30)
[2017-10-18] MEDS ORDERED: VANCOMYCIN1 GM/250 M IV (09:05)
[2017-10-18] MEDS ORDERED: ALTEPLASE RECOMBINANT 2 MG/2 ML VIAL IV PRN (09:15)
[2017-10-18 12:00] VITALS: BP 129/77
[2017-10-18 16:57] VITALS: BP 138/64
--- NOTE | 2017-10-18 21:47 | Discharge Summary ---
AUDIO CUTTING IN AND OUT IN MULTIPLE PORTIONS OF THE REPORT ADMISSION DIAGNOSES 1. of the right face and chin. 2. Hypertension. 3. Hypokalemia. 4. Normocytic anemia. 5. Prostate cancer. DISCHARGE DIAGNOSES 1. of the right face and chin. 2. Hypertension. 3. Hypokalemia. 4. Normocytic anemia. 5. Prostate cancer. 6. Methicillin-resistant Staphylococcus aureus of the wound. HISTORY: Patient has a history of hypertension, hyperlipidemia, stage-IV prostate cancer with chemo by MD William. Surgical history, patient has no surgical history. HOSPITAL COURSE: A 57-year-old male presents with erythema and swelling of the right face extending from the maxillary ridge down into the jaw area. This has been going on for about 2-3 days after he noticed . On admission, patient had a CT of the neck that showed right facial cellulitis with reactive regional lymph nodes. No abscess. Patient was started on vancomycin and cefepime the immunosuppression. The wound improved after the IV . Eventually, the wound stopped to progress. ENT did an I and D of the wound, was found to have MRSA in the wound. Cefepime was discontinued and patient continued vancomycin only. He had a right upper PICC placed for long-term antibiotics. The wound had packing in place. Patient will discharge home with 2 additional weeks of IV antibiotics per ID and will continue with packing and wound care per ENT stable. Patient afebrile. Dictated by Latoya Song NP MISTY BRADFORD MD Job#: [id number] CQ
== END 2017-10-18 17:14 | disposition home or self-care (01) | DRG 603 ==
LOC: FSED 16:10 → ERHOLD 18:20 → MED/SURG2 20:40
PROVIDERS: ADMIT Internal Medicine; ATTEND Internal Medicine
PROC: 02HV33Z Insertion of Infusion Device into Superior Vena Cava, Percutaneous Approach (ICD-10-PCS; principal; 2017-10-14)
PROC: 0J910ZX Drainage of Face Subcutaneous Tissue and Fascia, Open Approach, Diagnostic (ICD-10-PCS; 2017-10-15)
DX: L03.211 Cellulitis of face (principal); N17.9 Acute kidney failure, unspecified; I10 Essential (primary) hypertension; C80.1 Malignant (primary) neoplasm, unspecified; B95.62 Methicillin resistant Staphylococcus aureus infection as the cause of diseases classified elsewhere; Z79.899 Other long term (current) drug therapy; E87.6 Hypokalemia; R00.1 Bradycardia, unspecified; K12.1 Other forms of stomatitis; D64.81 Anemia due to antineoplastic chemotherapy
CPT/HCPCS: 36415; 36569; 70486; 70491; 71045; 80048; 80053; 80202; 82607; 82728; 82746; 82948; 83540; 83735; 84443; 84466; 85025; 87040; 87071; 87186; 87205; 96367; 99284; J0692; J0696; J1170; J2270; J2405; J2997; J3370; J7030; J7042; Q9967

== ENCOUNTER → 2018-11-24 | Day surgery (SDC) | payer OTHER ==
[~2018-11-24] MED LIST changes: +BUPIVACAINE HCL 0.5% 10ML MPF VIAL INJ ONE; +CATAPRES0.1 MG PO; +CEFAZOLIN SOD 1 GM/NS 50ML 50 ML IV ONE; +CHANTIX1 MG; +CHOLESTYRAMINE L4 GM PO; +DEXAMETHASONE SOD PHOS INJ 4 MG/ML VIAL ONE; +FENTANYL CITRATE/PF 100MCG/2 ML INJ ONE; +LIDOCAINE HCL 2% LOCAL INJ 5 ML SDV VIAL INJ ONE; +MUPIROCIN 2% OINT 22 GM TUBE ONE; +NIFEDIPINE ER30 MG PO; +ONDANSETRON HCL INJ 2MG/ML 2ML 2 MG/ML VIAL ONE; +ONDANSETRON HCL4 MG; +PROPOFOL IV EMULSION 10 MG/ML 20 ML VIAL ONE; +SEVOFLURANE INHAL SOLN 250 ML PEN BTL ONE; +TYLENOL WITH C1 EACH PO; +VANCOCIN HCL250 MG PO; +VANCOMYCIN1 GM/250 M IV
--- OUTSIDE RECORDS SUMMARY | 2018-11-24 06:35 | XMS REPORT | Clinical Summary ---
Author Author [facility] Address Unknown Phone Unavailable Care Team Providers Care Safety Deposit Clerk Name Role Phone Asked, No Pcp PCP Unavailable Allergies No Known Allergies Medications End Date Status Medication Sig Dispensed Refills Start Date Active fenofibrate (TRICOR) 145 Take 1 tablet 0 07/12/201 MG tablet by mouth. 8 Active lisinopril Take 40 mg by 0 (PRINIVIL,ZESTRIL) 40 mg mouth. 8 tablet Active metoprolol succinate XL Take 25 mg by 0 (TOPROL-XL) 25 mg 24 hr mouth. 8 tablet Active grape seed extract 50 mg Take by 0 capsule mouth. Active calcium carbonate-vitamin Take by 0 D3 500 mg-200 unit per mouth. tablet Active bicalutamide (CASODEX) 50 Take 50 mg by 0 mg chemo tablet mouth. 8 Active varenicline (CHANTIX ELY) Give with 0 0.5 mg (11)- 1 mg (42) meals and 8 tablet with a full glass of water. Active Problems Not on file Social History Date Tobacco Use Types Packs/Day Years Used Current Some Day Smoker Cigarettes Smokeless Tobacco: Former User Comments: 30 Drinks/Week oz/Week Comments Alcohol Use No Sex Assigned at Date Recorded Not on file Industry Job Start Date Occupation Not on file Not on file Not on file Travel End Travel History Travel Start No recent travel history available. 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
[2018-11-24 09:25] VITALS: BP 155/88
--- NOTE | 2018-11-24 18:43 | Operative Report ---
DATE OF PROCEDURE: 11/24/2018 SURGEON: Jason Flores MD PREOPERATIVE DIAGNOSIS: Right hand carpal tunnel syndrome. POSTOPERATIVE DIAGNOSES: 1. Right hand carpal tunnel syndrome. 2. Flexor tenosynovitis right wrist. PROCEDURE: 1. Right open carpal tunnel release. 2. Flexor tenosynovectomy right wrist. ANESTHESIA: General. HISTORY: The patient is a 58-year-old with EMG-proven right hand carpal tunnel syndrome. Risks, benefits and alternatives of treatment were discussed with the patient. The patient is prepared to undergo the procedure as outlined. DESCRIPTION OF PROCEDURE: The patient was brought to the operating theater. After the induction of adequate general inhalation anesthesia, the patient was prepped and draped in the supine position. A time out was performed by the entire operating room team. A 2.5 cm incision was marked out in the intrathenar space. The right upper extremity was exsanguinated, and a tourniquet was inflated to a pressure of 250 mmHg. The incision was made through the skin and subcutaneous tissues and all venous tributaries were controlled with bipolar cautery. The incision was deepened through the palmar fascia until the transverse carpal ligament was identified. The ligament was sharply sectioned, taking care to protect and preserve the median nerve underlying it. After the complete width of the ligament had been transected, the distal volar forearm fascia was divided under direct view. Proliferative flexor tenosynovium was noticed to encompass the median nerve and this was radically excised. After performing this maneuver, the nerve was noted to lie adequately decompressed. The wound was copiously irrigated with bacteriostatic saline, closed with 5-0 nylon in an interrupted horizontal mattress fashion. A Marcaine field block was performed at the operative site. Tourniquet was deflated. All of the fingers pinked up nicely and a sterile bulking conforming bandage was applied to the hand and the wrist. A fiberglass splint was fashioned to maintain the wrist in a modest amount of extension. This was held in place with a loosely wrapped Christo wrap. The patient tolerated the procedure well and was brought to the recovery room in satisfactory condition and discharged with a postoperative instruction sheet as well as a followup appointment. MD CAR Pearson/MODL /[id number]
--- NOTE | 2018-11-24 18:48 | Operative Report ---
DATE OF PROCEDURE: 11/24/2018 SURGEON: Jason Flores MD PREOPERATIVE DIAGNOSIS: Stenosing tenosynovitis of right thumb. POSTOPERATIVE DIAGNOSIS: Stenosing tenosynovitis of right thumb. OPERATION PERFORMED: Tenovaginotomy of right thumb. ANESTHESIA: General. HISTORY: The patient is a 58-year-old right hand-dominant man who presents with stenosing tenosynovitis of the right thumb that is recalcitrant to conservative treatment. The risks, benefits, and alternatives of treatment were discussed with the patient and they are prepared to undergo the procedure as outlined. DESCRIPTION OF PROCEDURE: The patient was brought to the operating theater. After the induction of adequate general/regional anesthesia, the patient was prepped and draped in a supine position. A time out was performed by the entire operating room team. An oblique incision was marked out over the A1 corina of the right thumb. The upper extremity was exsanguinated, and a tourniquet was inflated to a pressure of 250 mmHg. The incision was made through the skin and subcutaneous tissues. All venous tributaries were controlled with bipolar cautery. The incision was deepened through the palmar tissues. The neurovascular bundles on the radial and ulnar sides of the flexor tendon sheath were identified and retracted away from the flexor tendon sheath and preserved. The A1 corina of the affected finger was identified and incised longitudinally, taking care to protect and preserve the flexor tendons within the sheath. After the complete length of the corina had been transected, the tendons were placed in a range of motion. There was noted to be good motion without any locking. The wound was then copiously irrigated with bacteriostatic saline and closed with 5-0 nylon in an interrupted horizontal mattress fashion. A Marcaine field block was performed at the operative site. The tourniquet was deflated. All the fingers pinked up nicely. A sterile bulky conforming bandage was applied to the hand, and the patient was returned to the recovery room in satisfactory condition and was discharged with a postoperative instruction sheet as well as a followup appointment. Jason Flores MD ER/MODL /[id number]
== END | disposition home or self-care (01) ==
LOC: OR 06:29
PROVIDERS: ATTEND Plastic Surgery
DX: G56.01 Carpal tunnel syndrome, right upper limb (principal); M65.831 Other synovitis and tenosynovitis, right forearm; M65.311 Trigger thumb, right thumb; C61 Malignant neoplasm of prostate; B19.20 Unspecified viral hepatitis C without hepatic coma; I10 Essential (primary) hypertension; N32.9 Bladder disorder, unspecified; H91.90 Unspecified hearing loss, unspecified ear; F41.9 Anxiety disorder, unspecified; Z87.891 Personal history of nicotine dependence
CPT/HCPCS: 25115; 26055; 93005; J0690; J1100; J2001; J2405; J2704; J3010